=== PATIENT | female | born 1955 | race Caucasian/White ===

== ENCOUNTER 2019-04-20 06:00 | Outpatient (RCR) | payer OTHER, SELFPAY | END 2019-05-20 14:54 | disposition home or self-care (01) | LOC: SPT 06:00 | PROVIDERS: Family Provider Nurse Practitioner Family; Visit Provider Orthopaedic Surgery | DX: Z47.1 Aftercare following joint replacement surgery (principal); Z96.652 Presence of left artificial knee joint | CPT/HCPCS: 97110 ×6 ==

== ENCOUNTER → 2019-08-10 13:09 | Outpatient (BNVA) | payer OTHER, SELFPAY | PROVIDERS: Family Provider Nurse Practitioner Family; Visit Provider Nurse Practitioner Family | DX: R06.2 Wheezing (principal); R06.02 Shortness of breath | CPT/HCPCS: 71046; 87400; 87635 ==

== ENCOUNTER → 2020-01-01 10:53 | Outpatient (BNVA) | payer OTHER, SELFPAY | PROVIDERS: Family Provider Nurse Practitioner Family; Visit Provider Registered Nurse | DX: E11.9 Type 2 diabetes mellitus without complications (principal); I10 Essential (primary) hypertension; E78.5 Hyperlipidemia, unspecified; E03.9 Hypothyroidism, unspecified | CPT/HCPCS: 80053; 80061; 84443; 85025 ==

== ENCOUNTER 2022-07-26 11:49 | Outpatient (CLI) | payer MEDICARE, SELFPAY ==
--- NOTE | 2022-07-26 12:05 | MM_ITS ---
WS: [id number] Bilateral screening 3D tomosynthesis digital mammogram, 07/26/2022 Clinical Data: SCREEN Comparison: None. Findings: The breast parenchymal pattern shows fibroglandular tissue. No spiculated masses or clustered calcifi cations are seen. There are no secondary signs of carcinoma. There are scattered benign calcification s throughout both breasts. There are lymph nodes in both axilla. MM/[place] [id number] Impression: 1. Negative bilateral mammogram with no prior exam for review. 2. Recommend annual screening mammograms. BIRADS: 1-Negative FOLLOW UP: 1 Year Follow-up The CAD receiving dock checker was used.
== END 2022-07-26 11:50 | disposition home or self-care (01) ==
LOC: RAD 11:54
PROVIDERS: PCP Physician Assistant; Visit Provider Physician Assistant
DX: Z12.31 Encounter for screening mammogram for malignant neoplasm of breast (principal)
CPT/HCPCS: 77063; 77067

== ENCOUNTER 2023-02-01 07:58 | Outpatient (CLI) | payer MEDICARE, SELFPAY ==
--- NOTE | 2023-02-01 08:20 | CT_ITS ---
WS: [id number] CT LUMBAR SPINE, noncontrast. HISTORY: VERTEBROGENIC LOW BACK PAIN TECHNIQUE: Contiguous 2.0 mm axial imaging are performed. Sagittal and coronal reformats are submitte d and reviewed. All CT scans at [facility] use at least one of these dose optimization techni ques: automated exposure control; mA and/or kV adjustment per patient size (includes targeted exams w here dose is matched to clinical indication); or iterative reconstruction. IV contrast: None DLP: 488.89 mGy COMPARISON: Radiographs 07/06/2022 Moderate increase in the lumbar lordosis. L4 anterolisthesis by 5.2 mm. No pars defects. No vertebral body fracture. Disc spaces are well-maintained throughout the lumbar spine. L1-2: Normal. L2-3: Diffuse annular disc bulging. Disc encroaching upon the ventral thecal sac. Mild central and bi lateral subarticular recess encroachment. L3-4: Moderate annular disc bulging is asymmetric to the LEFT. Slightly greater encroachment upon the LEFT subarticular recess and the traversing LEFT L4 nerve root. Moderate ligamentum flavum hypertrop hy. There is moderate central, LEFT subarticular recess and mild to moderate bilateral foraminal sten osis. L4-5: Diffuse annular disc bulging is asymmetric to the LEFT. LEFT foraminal disc protrusion. Severe ligamentum flavum and facet arthritis. Osteophytes encroach upon the thecal sac in the foramina. Louise re central, bilateral subarticular recess and moderate foraminal stenosis. Most significant encroachm ent upon the LEFT L5 traversing nerve root. L5-S1: Mild annular disc bulging and ligamentum flavum hypertrophy. Facet osteophytes encroach into t he thecal sac. Scattered calcified plaque in the aorta. IMPRESSION: 1. Grade 1 spondylolisthesis of L4. No pars defects. 2. L3-4: Moderate central, LEFT subarticular recess and mild to moderate bilateral foraminal stenosis . Most significant encroachment upon the traversing LEFT L4 nerve root. 3. L4-5: Severe central, bilateral subarticular recess and moderate foraminal stenosis. Most signific ant encroachment upon the traversing LEFT L5 nerve root. 4. L2-3: Mild central and bilateral subarticular recess stenosis.
== END 2023-02-01 07:59 | disposition home or self-care (01) ==
PROVIDERS: PCP Physician Assistant; Visit Provider Anesthesiology Pain Medicine
DX: M43.16 Spondylolisthesis, lumbar region (principal); M48.061 Spinal stenosis, lumbar region without neurogenic claudication
CPT/HCPCS: 72131

== ENCOUNTER 2023-10-09 13:53 | Outpatient (CLI) | payer BC, SELFPAY ==
--- NOTE | 2023-10-09 14:03 | XR_ITS ---
WS: [id number] SCREENING DEXA SCAN [employer] CLINICAL INFORMATION: Postmenopausal COMPARISON: None. FINDINGS: The L1-L4 bone mineral density measures 1.213 g/cm2. This corresponds to a T score score of 0.3 and Z score of 1.5. Left femoral neck bone mineral density measures 1.007 g/cm2. This corresponds to a T score of 0.0 and Z score of 1.1. Right femoral neck bone mineral density measures 1.027 g/cm2. This corresponds to a T score 0.2of and Z score of 1.3. Mean femoral neck bone mineral density measures 1.017 g/cm2. This corresponds to a T score of 0.1 and Z score of 1.2. XR/XR DEXA axial skeleton* [id number] IMPRESSION: Normal bone mineralization. Patient's FRAX calculated 10 year probability for major osteoporotic fracture i s 11.7% and osteoporotic hip fracture is 0.4%.
== END 2023-10-09 13:54 | disposition home or self-care (01) ==
LOC: RAD 13:53
PROVIDERS: PCP Physician Assistant; Visit Provider Physician Assistant
DX: Z13.820 Encounter for screening for osteoporosis (principal)
CPT/HCPCS: 77080

== ENCOUNTER 2024-08-04 09:44 | Outpatient (CLI) | payer MEDICARE, SELFPAY ==
--- NOTE | 2024-08-04 09:49 | MM_ITS ---
WS: [id number] BILATERAL SCREENING DIGITAL TOMOSYNTHESIS MAMMOGRAM WITH CAD HISTORY: SCREENING COMPARISON: 07/26/2022 Bilateral CC and MLO views with tomosynthesis and synthetic mammography submitted. Computer aided detection analyzed. Breast composition: There are scattered areas of fibroglandular density. No suspicious masses, microcalcifications or architectural distortion. Benign asymmetries and coarse dense calcifications within each breast. MM/MM scr tomosynthesis [id number] IMPRESSION: BI-RADS: 2 - Benign. FOLLOW UP: 1 Year Follow-up
== END 2024-08-04 09:45 | disposition home or self-care (01) ==
PROVIDERS: PCP Physician Assistant; Visit Provider Physician Assistant
DX: Z12.31 Encounter for screening mammogram for malignant neoplasm of breast (principal); R92.323 Mammographic fibroglandular density, bilateral breasts; R92.1 Mammographic calcification found on diagnostic imaging of breast; N64.89 Other specified disorders of breast
CPT/HCPCS: 77063; 77067

== ENCOUNTER 2024-12-01 11:59 | Outpatient (RCR) | payer MEDICARE, SELFPAY | END 2024-12-18 23:59 | disposition home or self-care (01) | LOC: SPT 11:59 | PROVIDERS: Visit Provider Physician Assistant | DX: M25.552 Pain in left hip (principal) | CPT/HCPCS: 97110; 97161 ==

== ENCOUNTER 2024-12-19 05:00 | Outpatient (RCR) | payer MEDICARE, SELFPAY | END 2025-01-16 08:57 | disposition home or self-care (01) | LOC: SPT 05:00 | PROVIDERS: Visit Provider Physician Assistant | DX: M25.552 Pain in left hip (principal) | CPT/HCPCS: 97110 ==